=== PATIENT | male | born 1965 | race Two or more races ===

== ENCOUNTER 2022-09-30 11:31 | Emergency (ER) | payer BC ==
[~2022-09-30] VITALS: Ht 185.4 cm; Wt 117.9 kg
--- NOTE | 2022-09-30 11:35 | NUR ---
BIBS C/O FEELING NAUSEOUS AND FEELING DIFFUSE ABDOMINAL PRESSURE CAME BACK FROM AN INTERNATIONAL FLIGHT 2 DAYS AGO.
[2022-09-30] MEDS ORDERED: ONDANSETRON HCL/PF 4 MG/2 ML VIAL IV ONE (12:00)
--- NOTE | 2022-09-30 12:00 | NUR ---
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
--- NOTE | 2022-09-30 12:03 | NUR ---
AT BEDSIDE FOR EVAL.
--- NOTE | 2022-09-30 12:05 | NUR ---
PATIENT TAKEN TO CT VIA [facility]
[2022-09-30 12:19] LABS: BASOPHILS % (AUTO) 0.6 % (0.0-2.0); EOSINOPHILS % (AUTO) 2.9 % (0.0-6.0); HEMATOCRIT 51 % (39-51); HEMOGLOBIN 16.7 g/dL (13.5-17.5); LYMPHOCYTES # (AUTO) 1.4 K/uL (0.8-4.8); LYMPHOCYTES % (AUTO) 17.4 % (20.0-44.0); MEAN CORPUSCULAR HGB CONC 33 g/dl (31.0-36.0); MEAN CORPUSCULAR VOLUME 93 fL (80-96); MONOCYTES # (AUTO) 0.7 K/uL (0.1-1.30); MONOCYTES % (AUTO) 8.1 % (2.0-12.0); NEUTROPHILS # (AUTO) 5.9 K/uL (1.8-8.9); PLATELET COUNT (AUTO) 237 K/uL (150-450); RED BLOOD CELL COUNT(AUTO) 5.48 MIL/uL (4.5-6.0); WHITE BLOOD COUNT (AUTO) 8.3 K/uL (4.3-11.0)
[2022-09-30] MEDS ORDERED: FAMOTIDINE (20 MG) 20 MG TABLET PO ONE (12:30)
[2022-09-30] MEDS ORDERED: LIDOCAINE VISCOUS 2% UD 15 ML UDC MM ONE (12:30)
[2022-09-30] MEDS ORDERED: MAG HYDROX/AL HYDROX/SIMETH 30 ML UDC PO ONE (12:30)
[2022-09-30] MEDS ORDERED: ONDANSETRON 4 MG TAB.RAPDIS SL ONE (12:30)
[2022-09-30 12:32] LABS: ALBUMIN 3.7 g/dL (3.4-5.0); BILIRUBIN,DIRECT 0.1 mg/dL (0.0-0.2); BILIRUBIN,TOTAL 0.5 mg/dL (0.2-1.0); CALCIUM, SERUM 9.1 mg/dL (8.5-10.1); CREATININE 1.1 mg/dL (0.6-1.3); POTASSIUM 3.8 mmol/L (3.5-5.1); TOTAL PROTEIN, SERUM 7.3 g/dL (6.4-8.2)
[2022-09-30] MEDS ORDERED: ONDANSETRON 4 MG TAB.RAPDIS ONE (12:34)
[2022-09-30] MEDS ORDERED: MAG HYDROX/AL HYDROX/SIMETH 30 ML UDC ONE (12:34)
[2022-09-30] MEDS ORDERED: FAMOTIDINE (20 MG) 20 MG TABLET ONE (12:34)
--- NOTE | 2022-09-30 12:45 | NUR ---
URINE SAMPLE SENT TO LAB
[2022-09-30 13:17] LABS: BILIRUBIN,URINE NEGATIVE (NEGATIVE); COLOR,URINE YELLOW (YELLOW); LEUKOCYTE ESTERASE ,URINE NEGATIVE (NEGATIVE); NITRITE, URINE NEGATIVE (NEGATIVE); PROTEIN,URINE NEGATIVE (NEGATIVE); UGLUCOSE NEGATIVE (NEGATIVE); UROBILINOGEN,URINE 0.2 EU/dL (0.2)
[2022-09-30 13:33] LABS: BACTERIA,URINE Rare /HPF (None Seen); RBC,URINE 0-2 /HPF (0-2); SQUAMOUS EPITHELIAL CELL,UR Rare /HPF (None Seen); WBC,URINE NONE SEEN /HPF (0-3)
[2022-09-30] MEDS ORDERED: ONDA4TAB5 PO ×2 (13:40→13:48)
[2022-09-30] MEDS ORDERED: FAMO-131 PO ×2 (13:40→13:48)
--- NOTE | 2022-09-30 14:30 | NUR ---
Patient discharged to home in stable condition. Written and verbal after care instructions given. Patient verbalizes understanding of instruction.
[2022-09-30 14:45] VITALS: BP 130/79
== END 2022-09-30 14:30 | disposition home or self-care (01) ==
LOC: ER 11:32
DX: R14.0 Abdominal distension (gaseous) (principal); R10.9 Unspecified abdominal pain; R11.0 Nausea
CPT/HCPCS: 99284; 74176; 85025; 80048; 83690; 80076; 81001; 36415; Q0162